=== PATIENT | female | born 1970 | race Caucasian/White ===

== ENCOUNTER → 2017-04-20 | Outpatient (CLI) | payer BC ==
--- NOTE | 2017-04-20 09:03 | RADIOLOGY REPORT (SQ) ---
EXAM DESCRIPTION: WRIST LEFT 3 VIEWS COMPLETED DATE/TIME: 04/20/2017 8:49 am REASON FOR STUDY: left wrist injury COMPARISON: None. NUMBER OF VIEWS: Three views. TECHNIQUE: AP, lateral, and oblique radiographic images acquired of the left wrist. LIMITATIONS: None. FINDINGS: MINERALIZATION: Normal. BONES: No acute fracture or dislocation. No worrisome bone lesions. Normal alignment. SOFT TISSUES: Mild diffuse soft tissue swelling. No foreign body. OTHER: No other significant finding. IMPRESSION: Soft tissue swelling. No fracture. TECHNICAL DOCUMENTATION: JOB ID: [id number] [employer]- All Rights Reserved
== END ==
LOC: RAD 07:44
PROVIDERS: ATTEND Emergency Medicine
DX: S69.92XA Unspecified injury of left wrist, hand and finger(s), initial encounter (principal); X58.XXXA Exposure to other specified factors, initial encounter

== ENCOUNTER → 2017-05-29 | Outpatient (CLI) | payer BC ==
[2017-05-29 12:53] LABS: ALANINE AMINOTRANSFERASE 26 U/L (9-52); ALBUMIN 4.7 g/dL (3.5-5.0); ALKALINE PHOSPHATASE 50 U/L (38-126); ANION GAP 9 (5-19); ASPARTATE AMINO TRANSFERASE 21 U/L (14-36); BILIRUBIN,DIRECT 0.3 mg/dL (0.0-0.4); BILIRUBIN,TOTAL 0.5 mg/dL (0.2-1.3); BLOOD UREA NITROGEN 10 mg/dL (7-20); CALCIUM 10.7 mg/dL (8.4-10.2); CARBON DIOXIDE 32 mmol/L (22-30); CHLORIDE 104 mmol/L (98-107); GLUCOSE 91 mg/dL (75-110); POTASSIUM 4.4 mmol/L (3.6-5.0); SODIUM 144.5 mmol/L (137-145); TOTAL PROTEIN 7.6 g/dL (6.3-8.2)
== END ==
LOC: OD 11:49
PROVIDERS: ATTEND Family Medicine
DX: R31.21 Asymptomatic microscopic hematuria (principal); E55.9 Vitamin D deficiency, unspecified; E53.8 Deficiency of other specified B group vitamins
CPT/HCPCS: 36415; 80053; 82306; 82607

== ENCOUNTER → 2017-07-09 | Outpatient (CLI) | payer BC ==
--- NOTE | 2017-07-12 11:16 | RADIOLOGY REPORT (SQ) ---
EXAM DESCRIPTION: MRI ABDOMEN COMBO COMPLETED DATE/TIME: 07/09/2017 2:26 pm REASON FOR STUDY: R31.0 GROSS HEMATURIA R31.0 GROSS HEMATURIA COMPARISON: None. TECHNIQUE: Multiplanar multisequence imaging performed without and with contrast including sagittal, axial and coronal T2, axial T1, axial gradient fat sat T1, axial, sagittal and coronal fat sat T1 po st contrast. CONTRAST TYPE AND DOSE: 20 mL Prohance. RENAL FUNCTION: GFR > 60. LIMITATIONS: None. FINDINGS: LIVER: Normal size. No masses. No dilated ducts. CBD normal. SPLEEN: Normal size. No focal lesions. PANCREAS: No masses. No adjacent inflammation or peripancreatic fluid collections. Pancreatic duct no t dilated. GALLBLADDER: Stones in the gallbladder. No gallbladder wall thickening or pericholecystic fluid. ADRENAL GLANDS: No significant masses or asymmetry. RIGHT KIDNEY AND URETER: No masses. No hydronephrosis. 1.5 cm simple cyst posterior right upper pole kidney. LEFT KIDNEY AND URETER: No masses. No hydronephrosis. AORTA AND VESSELS: No aneurysm. No dissection. Renal arteries, SMA, celiac without stenosis. RETROPERITONEUM: No retroperitoneal adenopathy, hemorrhage or masses. BOWEL: Not well seen ABDOMINAL WALL AND PERITONEUM: No hernias. No free fluid. BONES: No acute or significant findings. OTHER: No other significant finding. IMPRESSION: 1.5 CM SIMPLE CYST POSTERIOR RIGHT UPPER POLE KIDNEY. OTHERWISE, UNREMARKABLE MRI OF THE ABDOMEN WITHOUT AND WITH CONTRAST. TECHNICAL DOCUMENTATION: JOB ID: [id number] [employer]- All Rights Reserved Reading location - IP/workstation name: [facility]-[email or web address]
== END ==
LOC: RAD 13:15
PROVIDERS: ATTEND Urology
DX: R31.0 Gross hematuria (principal); N28.1 Cyst of kidney, acquired
CPT/HCPCS: 74183; A9576

== ENCOUNTER → 2019-06-04 | Outpatient (CLI) | payer BC ==
--- NOTE | 2019-06-05 08:33 | RADIOLOGY REPORT (SQ) ---
EXAM DESCRIPTION: U/S EXTREMITY NONVASCULAR LTD COMPLETED DATE/TIME: 06/04/2019 5:24 pm REASON FOR STUDY: R22.31 LOCALIZED SWELLING, MASS AND LUMP, RIGHT UPPER LIMB R22.31 LOCALIZED SWELL ING, MASS AND LUMP, RIGHT UPPER LIMB COMPARISON: None. TECHNIQUE: Dynamic and static grayscale images acquired of the localized site of clinical concern an d recorded on PACS. Additional selected color Doppler and spectral images recorded. SITE OF CONCERN: Right lateral arm. LIMITATIONS: None. FINDINGS: Homogeneous hyperechoic lesion in the subcutaneous tissues measuring 0.5 x 1.0 x 1.2 cm. No vascularity on Doppler imaging. IMPRESSION: HOMOGENEOUS HYPERECHOIC LESION CORRESPONDING TO THE PALPABLE FINDING. NONSPECIFIC APPEA SHEREEN. MAY BE A LIPOMA. IF THERE IS CLINICAL CONCERN, CONSIDER FOLLOW-UP MRI. TECHNICAL DOCUMENTATION: JOB ID: [id number] [employer]- All Rights Reserved Reading location - IP/workstation name: [email or web address]
== END ==
LOC: RAD 16:42
PROVIDERS: ATTEND Family Medicine
DX: R22.31 Localized swelling, mass and lump, right upper limb (principal)
CPT/HCPCS: 76882

== ENCOUNTER → 2019-06-09 | Outpatient (CLI) | payer BC ==
[2019-06-09 09:31] LABS: ALBUMIN 4.4 g/dL (3.5-5.0); ALKALINE PHOSPHATASE 49 U/L (38-126); ANION GAP 12 (5-19); ASPARTATE AMINO TRANSFERASE 33 U/L (14-36); BILIRUBIN,DIRECT 0.3 mg/dL (0.0-0.4); BILIRUBIN,TOTAL 0.6 mg/dL (0.2-1.3); BLOOD UREA NITROGEN 13 mg/dL (7-20); CALCIUM 9.5 mg/dL (8.4-10.2); CARBON DIOXIDE 24 mmol/L (22-30); CHLORIDE 105 mmol/L (98-107); CHOLESTEROL 231.53 mg/dL (0-200); GLUCOSE 98 mg/dL (75-110); POTASSIUM 3.9 mmol/L (3.6-5.0); TOTAL PROTEIN 7.8 g/dL (6.3-8.2); TRIGLYCERIDES 118 mg/dL (<150)
[2019-06-09 09:42] LABS: DIRECT LDL 144 mg/dL (<100)
== END ==
LOC: LAB 08:18
PROVIDERS: ATTEND Family Medicine
DX: Z13.220 Encounter for screening for lipoid disorders (principal); Z13.1 Encounter for screening for diabetes mellitus
CPT/HCPCS: 36415; 80053; 80061

== ENCOUNTER → 2019-10-15 | Outpatient (CLI) | payer BC ==
[2019-10-15 09:53] LABS: ALBUMIN 4.9 g/dL (3.5-5.0); ALKALINE PHOSPHATASE 45 U/L (38-126); ASPARTATE AMINO TRANSFERASE 23 U/L (14-36); BILIRUBIN,TOTAL 0.6 mg/dL (0.2-1.3); CHOLESTEROL 177.55 mg/dL (0-200); TOTAL PROTEIN 7.6 g/dL (6.3-8.2); TRIGLYCERIDES 105 mg/dL (<150)
[2019-10-15 10:04] LABS: DIRECT LDL 86 mg/dL (<100)
== END ==
LOC: OD 08:42
PROVIDERS: ATTEND Family Medicine
DX: E78.00 Pure hypercholesterolemia, unspecified (principal)
CPT/HCPCS: 36415; 80061; 80076